=== PATIENT | female | born 1945 | race Caucasian/White ===

== ENCOUNTER 2020-08-11 14:22 | Outpatient (REF) | payer MEDICARE, SELFPAY ==
--- NOTE | 2020-08-11 14:29 | XR_ITS ---
EXAMINATION: XR LUMBOSACRAL SPINE WITH OBLIQUES CLINICAL INFORMATION: Low back pain. COMPARISON: CT 05/24/2019 TECHNIQUE: Five views of the lumbar spine. FINDINGS: Mild S-shaped scoliotic curvature. There is a superior endplate depression of the L4 vertebral body, which appears to have a chronic appearance. This appears similar as compared to the prior CT of 05/24/2019. The superior and inferior endplates of the L3 and L2 vertebral bodies are not visualized in profile, limiting evaluation. The vertebral body heights are otherwise grossly maintained. No acute fractures are identified. Moderate L1-L2, L2-L3, L3-L4 disc degeneration, characterized by endplate osteophytes, sclerosis. L1-L2 disc space narrowing. Multilevel disc degenerative changes in the visualized lower thoracic spine, as well. Multilevel facet degeneration in the lumbar spine. Bilateral SI joint arthrosis. Vascular phleboliths in the pelvis. Extensive vascular calcification. XR/XR lumbar spine 4V min IMPRESSION: Mild S-shaped scoliotic curvature. Moderate spondylosis of the lumbar spine and visualized lower thoracic spine. Superior endplate depression of L4 vertebral body, suspected to be chronic. No acute fracture is otherwise identified. Bilateral SI joint arthritis.
--- NOTE | 2020-08-11 14:29 | XR_ITS ---
EXAMINATION: XR HIP, RIGHT CLINICAL INFORMATION: Right hip pain. COMPARISON: None TECHNIQUE: Two views of the right hip. FINDINGS: No fracture or dislocation. The hip joint space is maintained. Acetabular rim osteophytes. Generalized bone demineralization. Mild right SI joint arthritis. No acute pelvic fractures seen. Pelvic phleboliths. Osteitis pubis. XR/XR hip RT min 2V IMPRESSION: 1. No right hip fracture or dislocation is seen. 2. Mild right hip joint osteoarthritis.
== END 2020-08-11 14:23 | disposition home or self-care (01) ==
LOC: HO.XRAY 14:22
PROVIDERS: Visit Provider Nurse Practitioner Primary Care
DX: M25.551 Pain in right hip (principal); M54.5 Low back pain; M81.0 Age-related osteoporosis without current pathological fracture
CPT/HCPCS: 72110; 73502